=== PATIENT | female | born 1980 | race African-American/Black ===

== ENCOUNTER 2017-02-21 21:30 | Emergency (ER) | payer OTHER ==
--- NOTE | 2017-02-21 21:39 | PDOC ---
History of Present Illness - General Chief Complaint: Headache Stated Complaint: COLON AFTER EATING Time Seen by Provider: 02/21/17 21:39 - History of Present Illness Initial Comments: 02/21/17 22:03 This 37-year-old woman with a history of headache in the past (responsive to Fioricet/only partially responsive to Imitrex) presents with history of vomiting and headache while at work earlier this evening. Patient states that she believes she tainted food at work (approximately 6 PM); as soon as she vomited partially digested food, her headache resolved. Patient normally works from 4 PM till 12 midnight. She is leaving early because of her vomiting and history of headache. 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 Patient is currently comfortable without nausea, abdominal pain, headache or other symptoms other than mild abdominal cramps described by patient as feeling like she needed to move her bowels. She has not had any fever/chills today or recently. Past History - Past Medical History Allergies/Adverse Reactions: Allergies Allergy/AdvReac Type Severity Reaction Status Date / Time Penicillins Allergy Verified 09/21/13 20:26 SHRIMP Allergy Uncoded 09/21/13 20:26 Home Medications: Ambulatory Orders NK [No Known Home Medication] 02/21/17 Other medical history: MIGRAINES - Immunization History Td Vaccination: Yes Immunization Up to Date: Yes - Psycho/Social/Smoking Cessation Hx Anxiety: No Suicidal Ideation: No Smoking Status: No Smoking History: Unknown if ever smoked Have you smoked in the past 12 months: No Number of Cigarettes Smoked Daily: 0 Information on smoking cessation initiated: No Hx Alcohol Use: No Drug/Substance Use Hx: No Substance Use Type: None Neuro Specific PMHX - Complaint Specific PMHX Migraine: Yes Review of Systems - Review of Systems Able to Perform ROS?: Yes Comments:: 12 point review of systems is negative except for what is noted in the history of present illness *Physical Exam - Vital Signs Last Vital Signs Temp Pulse Resp BP Pulse Ox 98.9 F 72 14 122/75 100 02/21/17 21:31 02/21/17 21:31 02/21/17 21:31 02/21/17 21:31 02/21/17 21:31 - Physical Exam Comments: GENERAL: Adult female, alert and oriented 3, in no acute distress HEAD: Normal with no signs of trauma. EYES: PERRLA, EOMI, sclera anicteric, conjunctiva clear. ENT: Ears normal, nares patent, oropharynx clear without exudates. Dry mucous membranes. NECK: Normal range of motion, supple without lymphadenopathy, JVD, or masses. LUNGS: Breath sounds equal, clear to auscultation bilaterally. No wheezes, and no crackles. HEART:Regular rate and rhythm, normal S1 and S2 without murmur, rub or gallop. ABDOMEN:.normal bowel sounds No guarding,tenderness or rebound.No masses No distention. EXTREMITIES: Normal range of motion, no edema. No clubbing or cyanosis. No erythema, or tenderness. NEUROLOGICAL: Cranial nerves II through XII grossly intact. Normal speech. Motor/sensory 5/5, No focal neurological deficits. [id number] intact bilaterally MUSCULOSKELETAL: Back non-tender to palpation, no CVA tenderness SKIN: Warm, Dry, normal turgor, no rashes or lesions noted. 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 Prior to vomiting she had a headache but that resolved promptly after the episode of vomiting. 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 Exam is normal as noted above. Patient will be discharged with instructions to drink clear liquids and advance diet cautiously. She has persistent nausea/vomiting/diarrhea, she should not go to work tomorrow and if vomiting is persistent return to the emergency room. Also, this patient has recurrent headache that is severe and unresponsive to medication, she should also return to the emergency room. *DC/Admit/Observation/Transfer Diagnosis at time of Disposition: History of headache Food poisoning Qualifiers: Encounter type: initial encounter Injury intent: accidental or unintentional Qualified Code(s): T62.91XA - Toxic effect of unspecified noxious substance eaten as food, accidental (unintentional), initial encounter - Discharge Dispostion Disposition: HOME Condition at time of disposition: Stable - Patient Instructions Printed Discharge Instructions: DI for Food Poisoning Additional Instructions: drink plenty of fluids advance diet cautiously no work tomorrow if vomiting recurs return to ER if you have recurrent vomiting/severe headache - Post Discharge Activity Work/School Note: Back to Work
[2017-02-21 21:42] VITALS: BP 122/75; PULSE 72; TEMP 98.9; BMI 42.2
== END 2017-02-21 22:08 | disposition home or self-care (01) ==
LOC: FER 21:30
DX: T62.91XA Toxic effect of unspecified noxious substance eaten as food, accidental (unintentional), initial encounter (principal); R51 Headache; Y92.239 Unspecified place in hospital as the place of occurrence of the external cause; Y99.0 Civilian activity done for income or pay
CPT/HCPCS: 99282-25

== ENCOUNTER 2021-02-04 01:04 | Emergency (ER) | payer OTHER ==
[2021-02-04 01:13] VITALS: BP 140/92; PULSE 94; TEMP 98.9; BMI 36.9
== END 2021-02-04 01:21 | disposition home or self-care (01) ==
LOC: FER 01:04
DX: S89.91XA Unspecified injury of right lower leg, initial encounter (principal)
CPT/HCPCS: 99281-25

== ENCOUNTER 2021-02-07 19:53 | Observation (INO) | payer OTHER ==
[2021-02-07] MEDS ORDERED: SODIUM CHLORIDE 0.9% 500 ML INFUS.BAG IV ONE (20:13)
[2021-02-07 20:48] LABS: BASO % 0.4 % (0-2.0); EOS % 1.8 % (0-4.5); LYMPH % 20.5 % (8-40); MCHC 29.2 g/dl (32.0-36.0); MEAN CELL VOLUME 57.5 fl (80-96); MEAN PLT VOLUME 7.6 fl (7.5-11.1); MONO % 6.4 % (3.8-10.2); NEUT % 70.9 % (42.8-82.8); PLATELET COUNT 407 K/MM3 (134-434); RBC 4.17 M/mm3 (3.60-5.2); RDW 18.5 % (11.6-15.6); WHITE BLOOD COUNT 11.7 K/mm3 (4.0-10.8)
[2021-02-07 20:51] LABS: HCG,QUALITATIVE URINE Negative
[2021-02-07 20:52] LABS: PH,URINE 5.5 (4.5-8); URINE APPEARANCE CLEAR; URINE BILIRUBIN NEGATIVE (NEGATIVE); URINE COLOR YELLOW; URINE GLUCOSE (UA) NEGATIVE (NEGATIVE); URINE KETONE NEGATIVE (NEGATIVE)
[2021-02-07 20:53] LABS: URINE LEUK ESTERASE NEGATIVE (NEGATIVE); URINE NITRITE NEGATIVE (NEGATIVE); URINE PROTEIN NEGATIVE (NEGATIVE); URINE UROBILINOGEN 0.2 (0.2-1.0)
[2021-02-07 20:55] LABS: ACTIVATED PTT 24.6 SECONDS (25.2-36.5)
[2021-02-07 20:56] LABS: ADD RBC MORPHOLOGY YES; MCH 16.8 pg (25.7-33.7)
[2021-02-07 20:57] LABS: ALBUMIN 3.8 g/dl (3.4-5.0); ALK PHOS 67 U/L (45-117); ANION GAP 9 MMOL/L (8-16); BILIRUBIN,TOTAL 0.3 mg/dl (0.2-1); CALCIUM 8.8 mg/dl (8.5-10); CHLORIDE 103 mmol/L (98-107); CO2 25 mmol/L (21-32); CREATININE 0.8 mg/dl (0.55-1.3); GLUCOSE,RANDOM 87 mg/dl (74-106); SGOT/AST 15 U/L (15-37); SGPT/ALT 13 U/L (13-61); SODIUM 137 mmol/L (136-145); TOT PROT 7.6 g/dl (6.4-8.2)
[2021-02-07 20:59] LABS: INR 1.2 (0.82-1.09); PROTHROMBIN TIME (PATIENT) 13.3 SEC (10.2-13.0)
[2021-02-07 22:13] LABS: N-TERMINAL BNP 74.2 pg/ml (5-125)
[2021-02-07] MEDS ORDERED: ENOXAPARIN NA (PORCINE) 100 MG/1 ML DISP.SYRIN SQ ONE (22:35)
[2021-02-07] MEDS ORDERED: ENOXAPARIN NA (PORCINE) 60 MG/0.6 ML DISP.SYRIN SQ ONE (22:42)
[2021-02-07] MEDS ORDERED: LACTATED RINGERS SOLUTION 1000 ML INFUS.BAG IV ONE (22:58)
[2021-02-07] MEDS ORDERED: CLINDAMYCIN 600MG PREMIX IVPB 600 MG/50 ML BAG IVPB ONE (22:59)
[2021-02-07] MEDS ORDERED: CLINDAMYCIN PHOSPHATE 600 MG/4 ML VIAL ONE (23:02)
[2021-02-07 23:08] LABS: ANISOCYTOSIS 2+
[2021-02-07 23:09] LABS: PLATELET ESTIMATE SLT INCREASE
[2021-02-08 01:33] VITALS: BMI 37.6
[2021-02-08 05:33] VITALS: BP 123/68; TEMP 98.3
[2021-02-08] MEDS: CLINDAMYCIN 600MG PREMIX IVPB 600 MG/50 ML BAG IVPB SCH ×2 (08:06→09:20)
[2021-02-08] MEDS ORDERED: ENOXAPARIN NA (PORCINE) 120 MG/0.8 ML DISP.SYRIN SQ SCH (10:00)
[2021-02-08 10:31] LABS: BASO % 0.5 % (0-2.0); EOS % 1.9 % (0-4.5); HEMATOCRIT 24.3 % (32.4-45.2); HEMOGLOBIN 7.2 GM/dL (10.7-15.3); MCHC 29.5 g/dl (32.0-36.0); MEAN CELL VOLUME 58.6 fl (80-96); MEAN PLT VOLUME 8.7 fl (7.5-11.1); MONO % 7.1 % (3.8-10.2); NEUT % 66.5 % (42.8-82.8); PLATELET COUNT 356 K/MM3 (134-434); RBC 4.14 M/mm3 (3.60-5.2); WHITE BLOOD COUNT 9.2 K/mm3 (4.0-10.0)
[2021-02-08 10:39] LABS: INR 1.06 (0.83-1.09); MCH 17.3 pg (25.7-33.7)
[2021-02-08 10:57] LABS: ALBUMIN 3.2 g/dl (3.4-5.0); BLOOD UREA NITROGEN 8.1 mg/dL (7-18); CALCIUM 8.4 mg/dL (8.5-10.1)
[2021-02-08 10:59] LABS: MAGNESIUM 2.2 mg/dL (1.8-2.4)
[2021-02-08 11:00] LABS: CREATININE 0.7 mg/dL (0.55-1.3)
[2021-02-08 11:03] LABS: BILIRUBIN,TOTAL 0.4 mg/dL (0.2-1); TOT PROT 6.7 g/dl (6.4-8.2)
[2021-02-08 13:44] VITALS: PULSE 66
[2021-02-08] MEDS ORDERED: APIXABAN 5 MG TABLET PO SCH (22:00)
== END 2021-02-08 14:24 | disposition home or self-care (01) ==
LOC: FER 19:53 → INTOOBSV 02-08 00:50 → J4W 02-08 00:50 → UNDOADMOB 02-08 00:50 → J4W 02-08 13:29
PROVIDERS: ADMIT Hospitalist; ATTEND Nurse Practitioner Acute Care
PROC: 3E03329 Introduction of Other Anti-infective into Peripheral Vein, Percutaneous Approach (ICD-10-PCS; principal; 2021-02-08)
PROC: 3E023GC Introduction of Other Therapeutic Substance into Muscle, Percutaneous Approach (ICD-10-PCS; 2021-02-08)
PROC: 3E0337Z Introduction of Electrolytic and Water Balance Substance into Peripheral Vein, Percutaneous Approach (ICD-10-PCS; 2021-02-08)
PROC: 30283B1 Transfusion of Nonautologous 4-Factor Prothrombin Complex Concentrate into Vein, Percutaneous Approach (ICD-10-PCS; 2021-02-08)
DX: I80.3 Phlebitis and thrombophlebitis of lower extremities, unspecified (principal); L53.8 Other specified erythematous conditions; I26.99 Other pulmonary embolism without acute cor pulmonale; D50.9 Iron deficiency anemia, unspecified; M25.561 Pain in right knee; R07.89 Other chest pain; Z91.14 Patient's other noncompliance with medication regimen; R42 Dizziness and giddiness; E66.8 Other obesity; Z68.37 Body mass index [BMI] 37.0-37.9, adult; R22.41 Localized swelling, mass and lump, right lower limb; Z88.0 Allergy status to penicillin; Z91.013 Allergy to seafood; Z29.9 Encounter for prophylactic measures, unspecified; Z20.822 Contact with and (suspected) exposure to COVID-19
CPT/HCPCS: 36415; 36430; 71046-TC-FY; 71275-TC; 80053; 81003; 81241; 82550; 83735; 83880; 84484; 84703; 85025; 85300; 85610; 85730; 86922; 87086; 93005; 93306-TC; 93971-TC; 96365; 96372; 99285-25; C9803; G0378; P9058; Q9967; U0003; U0005

== ENCOUNTER 2021-04-02 16:51 | Emergency (ER) | payer OTHER ==
[2021-04-02] MEDS ORDERED: ONDANSETRON 4 MG/2 ML VIAL IVPB ONE (17:14)
[2021-04-02] MEDS ORDERED: SODIUM CHLORIDE 1,000 ML IV STA (17:14)
[2021-04-02] MEDS ORDERED: ONDANSETRON 4 MG/2 ML VIAL ONE (17:30)
[2021-04-02 17:35] VITALS: BP 145/86; PULSE 58; TEMP 99.3; BMI 36.9
[2021-04-02 17:51] LABS: BASO % 0.3 % (0-2.0); EOS % 0.5 % (0-4.5); HEMATOCRIT 28.4 % (32.4-45.2); HEMOGLOBIN 8.5 GM/dl (10.7-15.3); LYMPH % 18.2 % (8-40); MCHC 29.9 g/dl (32.0-36.0); MEAN CELL VOLUME 62.9 fl (80-96); MEAN PLT VOLUME 7.7 fl (7.5-11.1); PLATELET COUNT 397 10^3/uL (134-434); RBC 4.52 M/mm3 (3.60-5.2); RDW 22.5 % (11.6-15.6); WHITE BLOOD COUNT 10.1 K/mm3 (4.0-10.8)
[2021-04-02 17:53] LABS: ADD RBC MORPHOLOGY YES; MCH 18.8 pg (25.7-33.7)
[2021-04-02 18:00] LABS: ALBUMIN 4.3 g/dl (3.4-5.0); BILIRUBIN,TOTAL 0.4 mg/dl (0.2-1); CALCIUM 8.9 mg/dl (8.5-10); CREATININE 0.9 mg/dl (0.55-1.3); TOT PROT 7.9 g/dl (6.4-8.2)
[2021-04-02 20:09] LABS: ANISOCYTOSIS 2+; MACROCYTOSIS 1+; PLATELET ESTIMATE ADEQUATE
== END 2021-04-02 19:09 | disposition home or self-care (01) ==
LOC: FER 16:51
PROC: 3E033NZ Introduction of Analgesics, Hypnotics, Sedatives into Peripheral Vein, Percutaneous Approach (ICD-10-PCS; principal; 2021-04-02)
PROC: 3E0337Z Introduction of Electrolytic and Water Balance Substance into Peripheral Vein, Percutaneous Approach (ICD-10-PCS; 2021-04-02)
DX: K59.00 Constipation, unspecified (principal); R11.2 Nausea with vomiting, unspecified; R10.9 Unspecified abdominal pain
CPT/HCPCS: 36415; 74177-TC; 80053; 85025; 99285-25